=== PATIENT | male | born 1995 | race Caucasian/White ===

== ENCOUNTER 2024-09-06 16:39 | Emergency (ER) | payer BC, SELFPAY ==
[2024-09-06 16:41] VITALS: BP 134/91
--- NOTE | 2024-09-06 17:16 | ED.GENMED ---
History of Present Illness
General
Chief Complaint: Facial Problem
Source: patient
Exam Limitations: none
Time Seen by Provider: 09/06/24 17:11
Nursing documentation reviewed up to this point in time: agreed with
History of Present Illness
History of Present Illness:
Patient is a 28 your male who presents to the ER for evaluation. On Thursday night 2 days ago he in [place] the [employer] when. He reports to drinking alcohol all throughout the day. He is unable to tell me what happened .he does not
recall . his friends told him he ran away and then he came back with bruising to his face. He was nauseous the next day however yesterday, Thursday he went to urgent care had x-rays had a small abrasion/laceration to forehead. He was put on
amoxicillin for this abrasion. He was recommended to come here to the ER for evaluation. He went to ophthalmology today and had a normal exam. He had a mild headache but denies any nausea or vomiting. Denies any visual disturbance. Denies any
light sensitivity.
Past History
Past History
ED Past Medical History: None
ED Past Surgical History: None
Social History
Tobacco: Non-smoker
Alcohol: None
Review of Systems
Review of Systems
Allergies reviewed?: Yes
All Other Systems: ROS reviewed and negative except as documented in HPI and ROS
Constitutional: Reports no symptoms; Denies fever
Cardiac: Reports no symptoms
ABD/GI: Reports other (Patient was nauseous yesterday resolved now)
Musculoskeletal: Reports no symptoms
Skin: Reports other (Abrasion to forehead)
Neurological: Reports headache (mild headache yesterday )
Psychiatric: Reports no symptoms
Phy Exam
General Physical Exam
General Presentation: no apparent distress
General age: appears stated age
General Skin: warm and dry
General Habitus: normal
General Mental: alert
General Hydration: appears well hydrated
ENT Exam
ENT Exam: EOMI and neck supple
Eye Exam
Eye Exam: PERRL, EOMI and other (left eye with scattered ecchymosis mildly sore around orbital region but no step-offs or crepitus left lateral subconjunctival hemorrhage no hyphema)
Eye Exam General: PERRL: bilateral and EOM intact: bilateral
Pupil Exam: Bilateral: round and reactive
Neurological Exam
Neurological Exam: alert and oriented x3
[place] Coma Scale
Eye Opening: Spontaneous
Verbal Response: Oriented
Motor Response: Obeys Commands
GCS Total Score: 15
Cerebellar
Cerebellar Function: normal finger to nose
Musculoskeletal Exam
Musculoskeletal Exam: full ROM and other (Positive abrasion/superficial laceration to left forehead; full range of motion all extremities)
Skin Exam
Skin Exam: normal color and warm/dry
Psychiatric Exam
Psychiatric Exam: normal mood/affect
Course
Orders/Labs/Results
Orders:
Orders
09/06/24 16:49
CT Cervical Spine W/o Iv Contr Urgent
Reason For Exam: fall and pain
CT Facial Bones W/o Iv Contras Urgent
Comment:
Reason For Exam: fall, black eye
CT Head W/o Iv Contrast Urgent
Comment:
Reason For Exam: fall, black eye
Vital Signs
Initial and Last Documented VS:
Initial Vital Signs
Temp Pulse Resp BP Pulse Ox
97.8 F 65 18 134/91 100
09/06/24 16:41 09/06/24 16:41 09/06/24 16:41 09/06/24 16:41 09/06/24 16:41
Last Documented Vital Signs
Temp Pulse Resp BP Pulse Ox
97.8 F 65 18 134/91 100
09/06/24 16:41 09/06/24 16:41 09/06/24 16:41 09/06/24 16:41 09/06/24 16:41
MDM/Problems Addressed
Differential Diagnosis Includes:
Not limited to head injury contusion concussion facial fracture abrasion
MDM/Problems Addressed:
Patient is a 28 yr old male who presented to the ER for evaluation. Patient sustained injury but does not recall the injury 2 days ago while he was drinking [facility] [employer] [facility] He presents with obvious ecchymosis to the left side of his
face. Seen by urgent care yesterday had x-rays but was sent and recommended to come to the ER. He also saw ophthalmology today who stated he had a normal exam. He does not wear contacts.
Patient presents awake alert no acute distress normal neurologic exam scattered bruising to the left orbital region with no step-offs no obvious fracture on CAT scan head CT cervical CT negative. Patient has a small abrasion to his left forehead.
Patient is awake alert within normal neurologic exam. Patient has a lateral left eye subconjunctival hemorrhage no hyphema.
Patient was initially placed on amoxicillin for superficial laceration/abrasion to left forehead he may complete this however not necessary. There is sinusitis on CAT scan however with no facial bone fracture and no symptoms of sinusitis
antibiotics not indicated. Patient was given tetanus in urgent care
Patient is to follow-up with family doctor for reevaluation of symptoms and he is to return if any worsening of symptoms.
Patient denies any headache nausea vomiting head injury however no evidence of concussion at this time no symptoms.
*Radiology
Radiology exam reviewed: radiology read reviewed
*Critical Care Note
Total Time (30-74mins, 75-104mins- exclusive of procedures): Not Applicable
ED Attending Note
-
Portions of this chart may have been created with voice recognition software.� Occasional wrong word or��sound alike� substitutions may have occurred due to the inherent limitations of voice recognition software.
Discharge Plan
Departure
Patient Disposition: Home (Routine Discharge)
Date of Disposition: 09/06/24
Time of Disposition: 18:03
Patient with high blood pressure during this ER visit?: Yes
Condition: Fair
Covid-19: Not Applicable
Discharge Problem:
Contusion, Head injury, Abrasion
Instructions: Head injury in adults, Abrasions - ED discharge instructions, BLOOD PRESSURE, Contusion
Prescriptions:
No Action
hydrocodone-acetaminophen 1 TABLET tablet
1 tab PO Q4HPRN PRN (Reason: pain) Qty: 20 0RF
ibuprofen 400 MG tablet
400 mg PO Q6HPRN PRN (Reason: pain) Qty: 0 0RF
Referrals:
Abhay Henry MD [Family Provider] -
Activity Restrictions/Additional Instructions:
As discussed your CAT scans are negative for acute injury. There was incidental sinusitis found on your CAT scan however you have no symptoms. As discussed because there is no obvious fracture it is not necessary that you continue antibiotics
however we do recommend continued wound care to forehead. Wash soap and water twice a day and apply antibiotic open to the area. Return if any signs of infection. Follow-up with family doctor in the next 2 days for reevaluation.
return if any worsening of symptoms
Interventions
Interventions:
*Risk Screen - Suicide Last Done: 09/06/24 16:41
*General Assessment Last Done: 09/06/24 16:41
*Neglect/Abuse Screening Last Done: 09/06/24 16:41
ED- Fall Risk Assessment Last Done: 09/06/24 17:07
*ED COVID-19 Vaccine History Last Done: 09/06/24 16:41
*Nursing Disposition Last Done: 09/06/24 18:13
ED- Neurological Assessment Last Done: 09/06/24 17:07
ED-Skin Assessment Last Done: 09/06/24 17:07
Discharge Date and Time
Discharge Date/Time: 09/06/24 18:13
Print Language: IRISH
== END 2024-09-06 18:13 | disposition home or self-care (01) ==
LOC: EMR 16:39
PROVIDERS: EMERGENCY PHYSICIAN Emergency Medicine; FAMILY PHYSICIAN Internal Medicine
DX: S09.90XA Unspecified injury of head, initial encounter (principal); S00.83XA Contusion of other part of head, initial encounter; X58.XXXA Exposure to other specified factors, initial encounter; H11.32 Conjunctival hemorrhage, left eye; R03.0 Elevated blood-pressure reading, without diagnosis of hypertension
CPT/HCPCS: 99285; 70450; 70486; 72125